=== PATIENT | male | born 1940 | race Caucasian/White ===

== ENCOUNTER 2017-12-20 10:35 | Emergency (ER) | payer OTHER ==
[2017-12-20 10:56] VITALS: RESP 18
--- NOTE | 2017-12-20 11:14 | ED ---
General Adult HPI - General Chief complaint: Neuro Symptoms/Deficit Stated complaint: wellness check Time Seen by Provider: 12/20/17 10:59 Source: patient, RN notes reviewed, old records reviewed Mode of arrival: ambulatory Limitations: no limitations - History of Present Illness Initial comments: 77 yo male presents for evaluation of jaw pain and numbness. Patient's symptoms have been present for the past 10 hours. He was concerned that this could be related to his heart. He does have history of atrial fibrillation is currently on amiodarone as well as Eliquis. Patient denies headache. He denies central radiating chest pain. Denies any extremity numbness or weakness. No history of TIA or CVA. He states that jaw numbness is bilateral. He states he had an episode of atrial fibrillation approximately one week ago which was treated at an outside hospital. He has felt well since discharge with the exception of the preceding 10 hours. - Related Data Home Medications Medication Instructions Recorded Confirmed Apixaban [Eliquis] 5 mg PO DIRECTED 09/23/15 12/20/17 Amiodarone [Cordarone] 100 mg PO DIRECTED 12/20/17 12/20/17 Atorvastatin [Lipitor] 20 mg PO MOTUTHFRSA 12/20/17 12/20/17 Allergies Allergy/AdvReac Type Severity Reaction Status Date / Time No Known Allergies Allergy Verified 12/20/17 11:43 Review of Systems ROS Statement: Those systems with pertinent positive or pertinent negative responses have been documented in the HPI. ROS Other: All systems not noted in ROS Statement are negative. Past Medical History Past Medical History: Atrial Fibrillation, Cancer, Chest Pain / Angina, Hyperlipidemia, Pneumonia Additional Past Medical History / Comment(s): HX CA SKIN. OCC BRIEF "ACHE" IN LT CHEST AREA. History of Any Multi-Drug Resistant Organisms: None Reported Past Surgical History: Hernia Repair, Orthopedic Surgery, Tonsillectomy Additional Past Surgical History / Comment(s): ORIF RT FOOT. CARDIOVERSIONX1. Past Anesthesia/Blood Transfusion Reactions: No Reported Reaction Past Psychological History: No Psychological Hx Reported Smoking Status: Never smoker Past Alcohol Use History: None Reported Past Drug Use History: None Reported - Past Family History Mother Family Medical History: No Reported History General Exam Limitations: no limitations General appearance: alert, in no apparent distress Head exam: Present: atraumatic, normocephalic Eye exam: Present: normal appearance, PERRL ENT exam: Present: normal exam Neck exam: Present: normal inspection. Absent: tenderness, meningismus Respiratory exam: Present: normal lung sounds bilaterally. Absent: respiratory distress, wheezes, rales Cardiovascular Exam: Present: regular rate, normal rhythm GI/Abdominal exam: Present: soft. Absent: distended, tenderness, guarding Extremities exam: Present: normal inspection. Absent: normal capillary refill, pedal edema Neurological exam: Present: alert, oriented X3, CN II-XII intact, normal gait. Absent: motor sensory deficit Psychiatric exam: Present: normal affect, normal mood Skin exam: Present: warm, dry, intact. Absent: cyanosis, diaphoretic Course Vital Signs 12/20/17 12/20/17 10:51 11:21 Temperature 98.5 F 97.9 F Pulse Rate 64 60 Respiratory 18 18 Rate Blood Pressure 124/70 124/73 O2 Sat by Pulse 95 94 L Oximetry EKG Findings - EKG Comments: EKG Findings:: EKG: Normal sinus rhythm, rate of 65, ME interval 196, QRS duration 102, QTC 432, no ST segment elevation or depression Medical Decision Making - Medical Decision Making 77-year-old male presenting with jaw numbness and paresthesia. This is bilateral. Patient has no focal neurological findings. He was uncertain if this is from his heart as he does have history of atrial fibrillation. He is worked up in the emergency Department both for TIA and chest pain. He is anticoagulated secondary to his history of atrial fibrillation. He is in normal sinus rhythm, vital signs are stable, normal CBC, normal CMP, negative troponin, chest x-ray shows COPD and cardiomegaly with no acute findings, head CT is negative. Initial plan is for admission for both TIA workup and serial cardiac enzymes. Patient declines. He prefers outpatient follow-up. He is eager for discharge. He will continue his anticoagulation, return with worsening or changing symptoms. - Lab Data Result diagrams: 12/20/17 11:40 12/20/17 11:40 Lab Results 12/20/17 12/20/17 12/20/17 Range/Units 11:40 11:40 11:40 WBC 3.7 L (3.8-10.6) k/uL RBC 4.59 (4.30-5.90) m/uL Hgb 13.7 (13.0-17.5) gm/dL Hct 40.8 (39.0-53.0) % MCV 89.1 (80.0-100.0) fL MCH 29.9 (25.0-35.0) pg MCHC 33.5 (31.0-37.0) g/dL RDW 13.0 (11.5-15.5) % Plt Count 209 (150-450) k/uL Neutrophils % 51 % Lymphocytes % 34 % Monocytes % 7 % Eosinophils % 5 % Basophils % 0 % Neutrophils # 1.9 (1.3-7.7) k/uL Lymphocytes # 1.3 (1.0-4.8) k/uL Monocytes # 0.2 (0-1.0) k/uL Eosinophils # 0.2 (0-0.7) k/uL Basophils # 0.0 (0-0.2) k/uL PT (9.0-12.0) sec INR (<1.2) APTT (22.0-30.0) sec Sodium 140 (137-145) mmol/L Potassium 5.0 (3.5-5.1) mmol/L Chloride 108 H (98-107) mmol/L Carbon Dioxide 24 (22-30) mmol/L Anion Gap 8 mmol/L BUN 16 (9-20) mg/dL Creatinine 0.85 (0.66-1.25) mg/dL Est GFR (CKD-EPI)AfAm >90 (>60 ml/min/1.73 sqM) Est GFR (CKD-EPI)NonAf 85 (>60 ml/min/1.73 sqM) Glucose 108 H (74-99) mg/dL Calcium 9.0 (8.4-10.2) mg/dL Magnesium 2.0 (1.6-2.3) mg/dL Total Bilirubin 0.5 (0.2-1.3) mg/dL AST 24 (17-59) U/L ALT 24 (21-72) U/L Alkaline Phosphatase 66 (38-126) U/L Total Creatine Kinase 99 (55-170) U/L CK-MB (CK-2) 2.3 (0.0-2.4) ng/mL CK-MB (CK-2) Rel Index 2.3 Troponin I <0.012 (0.000-0.034) ng/mL Total Protein 6.6 (6.3-8.2) g/dL Albumin 3.7 (3.5-5.0) g/dL 12/20/17 Range/Units 11:40 WBC (3.8-10.6) k/uL RBC (4.30-5.90) m/uL Hgb (13.0-17.5) gm/dL Hct (39.0-53.0) % MCV (80.0-100.0) fL MCH (25.0-35.0) pg MCHC (31.0-37.0) g/dL RDW (11.5-15.5) % Plt Count (150-450) k/uL Neutrophils % % Lymphocytes % % Monocytes % % Eosinophils % % Basophils % % Neutrophils # (1.3-7.7) k/uL Lymphocytes # (1.0-4.8) k/uL Monocytes # (0-1.0) k/uL Eosinophils # (0-0.7) k/uL Basophils # (0-0.2) k/uL PT 9.4 (9.0-12.0) sec INR 0.9 (<1.2) APTT 22.6 (22.0-30.0) sec Sodium (137-145) mmol/L Potassium (3.5-5.1) mmol/L Chloride (98-107) mmol/L Carbon Dioxide (22-30) mmol/L Anion Gap mmol/L BUN (9-20) mg/dL Creatinine (0.66-1.25) mg/dL Est GFR (CKD-EPI)AfAm (>60 ml/min/1.73 sqM) Est GFR (CKD-EPI)NonAf (>60 ml/min/1.73 sqM) Glucose (74-99) mg/dL Calcium (8.4-10.2) mg/dL Magnesium (1.6-2.3) mg/dL Total Bilirubin (0.2-1.3) mg/dL AST (17-59) U/L ALT (21-72) U/L Alkaline Phosphatase (38-126) U/L Total Creatine Kinase (55-170) U/L CK-MB (CK-2) (0.0-2.4) ng/mL CK-MB (CK-2) Rel Index Troponin I (0.000-0.034) ng/mL Total Protein (6.3-8.2) g/dL Albumin (3.5-5.0) g/dL Disposition Clinical Impression: Paresthesia Disposition: HOME SELF-CARE Condition: Good Instructions: Paresthesia (ED) Is patient prescribed a controlled substance at d/c from ED?: No Referrals: Patti Holder MD [Primary Care Provider] - 1-2 days Time of Disposition: 14:08
[2017-12-20 11:22] VITALS: BP 124/73; PULSE 60; TEMP 97.9
[2017-12-20 11:58] LABS: Basophils % (A) 0 %; Eosinophils # (A) 0.2 k/uL (0-0.7); Eosinophils % (A) 5 %; HCT 40.8 % (39.0-53.0); HGB 13.7 gm/dL (13.0-17.5); Lymphocytes # (A) 1.3 k/uL (1.0-4.8); Lymphocytes % (A) 34 %; MCH 29.9 pg (25.0-35.0); MCHC 33.5 g/dL (31.0-37.0); MCV 89.1 fL (80.0-100.0); Mean Platelet Volume 7.6; Monocytes # (A) 0.2 k/uL (0-1.0); Monocytes % (A) 7 %; Neutrophils # (A) 1.9 k/uL (1.3-7.7); Neutrophils % (A) 51 %; Platelet Count 209 k/uL (150-450); RBC 4.59 m/uL (4.30-5.90); WBC 3.7 k/uL (3.8-10.6)
[2017-12-20 12:12] LABS: INR 0.9 (<1.2); Partial Thromboplastin Time 22.6 sec (22.0-30.0); Prothrombin Time 9.4 sec (9.0-12.0)
[2017-12-20 12:21] LABS: ALT 24 U/L (21-72); AST 24 U/L (17-59); Albumin 3.7 g/dL (3.5-5.0); Alkaline Phosphatase 66 U/L (38-126); Anion Gap 8 mmol/L; Blood Urea Nitrogen 16 mg/dL (9-20); Carbon Dioxide 24 mmol/L (22-30); Chloride 108 mmol/L (98-107); Glucose 108 mg/dL (74-99); Sodium 140 mmol/L (137-145); Total Bilirubin 0.5 mg/dL (0.2-1.3); Total Protein 6.6 g/dL (6.3-8.2)
[2017-12-20 12:22] LABS: Creatine Kinase 99 U/L (55-170)
[2017-12-20 12:33] LABS: Creatine Kinase MB 2.3 ng/mL (0.0-2.4); Troponin I <0.012 ng/mL (0.000-0.034)
--- NOTE | 2017-12-20 12:50 | CT ---
EXAMINATION TYPE: CT brain wo con DATE OF EXAM: 12/20/2017 COMPARISON: None HISTORY: Headache and left side facial numbness. CT DLP: 801.[address] of the brain was performed. The ventricles, basal cisterns and sulci overlying the cerebral convexities demonstrate mild enlargem ent. There is no evidence for intracranial hemorrhage or sulcal effacement. There is decreased attenuation about the periventricular white matter and deep white matter of both c erebral hemispheres, compatible with chronic small vessel ischemia. Differential diagnosis does inclu de demyelination. No mass effects are seen.No midline shift. Osseous calvarium is intact. If symptoms persist consider MRI. IMPRESSION: 1. Age related atrophic and chronic small vessel ischemic change without acute intracranial process s een at this time.
--- NOTE | 2017-12-20 12:52 | XR ---
EXAMINATION TYPE: XR chest 2V DATE OF EXAM: 12/20/2017 COMPARISON: Prior chest unavailable. HISTORY: Altered mental status TECHNIQUE: Frontal and lateral views of the chest are obtained. FINDINGS: Prominent lung volumes suggest underlying COPD. There is no focal air space opacity, pleura l effusion, or pneumothorax seen. The cardiac silhouette size is enlarged, there are overlying cardi ac leads, patient is rotated. Thoracic spondylosis is present. Flowing anterior osteophytes suggest possible diffuse idiopathic skeletal hyperostosis. There are coronary artery calcifications. The oss eous structures are intact. IMPRESSION: Cardiomegaly. Additional findings above.
== END 2017-12-20 14:31 | disposition home or self-care (01) ==
LOC: EC 10:35
DX: R20.2 Paresthesia of skin (principal); J44.9 Chronic obstructive pulmonary disease, unspecified; I51.7 Cardiomegaly; R20.0 Anesthesia of skin; R68.84 Jaw pain; I48.91 Unspecified atrial fibrillation; E78.5 Hyperlipidemia, unspecified; Z79.01 Long term (current) use of anticoagulants; Z79.899 Other long term (current) drug therapy
CPT/HCPCS: 36415; 70450; 71046; 80053; 82550; 82553; 83735; 84484; 85025; 85610; 85730; 93005; 99285